=== PATIENT | male | born 1960 | race Caucasian/White ===

== ENCOUNTER 2018-07-30 11:06 | Outpatient (CLI) | payer MEDICARE ==
--- NOTE | 2018-07-30 13:25 | MRI ---
MRI LUMBAR SPINE: HISTORY: Right foot numbness. TECHNIQUE: Multiplanar, multisequence, noncontrast-enhanced MR images of the lumbar spine are obtained. RADIOGRAPHIC FINDINGS: For the purposes of this dictation, the last freely mobile vertebral body will be considered to be th e L5 vertebral body. All other vertebral bodies numbered according to this. T12-L1: Mild disk desiccation is seen. No evidence of significant central stenosis or neural forami nal narrowing is seen. L1-L2: Mild facet hypertrophy is seen. The central canal and neural foramen are patent. L2-L3: Mild facet and ligamentum flavum hypertrophy is seen. The central canal and neural foramen a re patent. L3-L4: There is some disk desiccation seen. There is a broad-based disk bulge with bilateral facet hypertrophy and ligamentum flavum hypertrophy, resulting in mild central and lateral recess stenosis. Mild bilateral neural foraminal narrowing is seen. L4-L5: Disk desiccation is seen. There is a broad-based disk bulge with bilateral facet hypertrophy . No significant degree of central stenosis is seen. An annular fissure is seen at the posterior as pect of annulus fibrosis. Some mild bilateral neural foraminal narrowing is seen, due to the facet h ypertrophy. L5-S1: Some disk desiccation is seen. Mild broad-based disk bulge is seen. There appears to be rig ht-sided posterior L5-S1 and lateral recess scarring, possibly due to previous surgery. There do alberto ear to be some adhesions of the nerve roots within the thecal sac, in the L5 and L5-S1 regions, dexter rning for possible intrathecal fibrosis. The nerve roots appears to be slightly clumped together. 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 POS: LETTY
== END 2018-07-30 11:07 | disposition home or self-care (01) ==
LOC: TBSIIMAG 11:06
PROVIDERS: ATTEND Neurological Surgery
DX: M54.16 Radiculopathy, lumbar region (principal); Z98.890 Other specified postprocedural states
CPT/HCPCS: 72148